=== PATIENT | male | born 1965 | race Caucasian/White ===

== ENCOUNTER → 2024-01-28 06:26 | Day surgery (SDC) | payer BC, SELFPAY | LOC: GI 06:26 | PROVIDERS: ATTENDING PHYSICIAN Surgery | DX: Z12.11 Encounter for screening for malignant neoplasm of colon (principal); D12.2 Benign neoplasm of ascending colon; D12.5 Benign neoplasm of sigmoid colon; D12.8 Benign neoplasm of rectum | CPT/HCPCS: 45385; 88305 ==

== ENCOUNTER 2024-11-18 06:21 | Day surgery (SDC) | payer BC, SELFPAY | END 2024-11-18 10:13 | disposition home or self-care (01) | LOC: GI 06:21 | PROVIDERS: ATTENDING PHYSICIAN Surgery; FAMILY PHYSICIAN Family Medicine | DX: Z12.11 Encounter for screening for malignant neoplasm of colon (principal); D12.4 Benign neoplasm of descending colon; K56.2 Volvulus; K64.8 Other hemorrhoids; Z86.0100 Personal history of colon polyps, unspecified | CPT/HCPCS: 45380; 88305 ==

== ENCOUNTER 2024-12-02 22:27 | Inpatient (IN) | payer BC, SELFPAY ==
[2024-12-02] VITALS (13 sets, daily range): BP systolic 0–191; BP diastolic 59–141; BMI 26.5
[2024-12-02 15:44] LABS: Hematocrit 53.1 % (39.0-52.0); Hemoglobin 18.7 g/dL (13.0-18.0); Mean Corp Hgb Conc. 35.2 g/dL (33.0-37.0); Mean Corpuscular Hgb 32.5 pg (27.0-31.0); Mean Corpuscular Volume 92.2 fL (80.0-94.0); Mean Platelet Volume 10.9 fL (7.4-10.4); Platelet Count 404 10^3/uL (130-400); Red Blood Cell Count 5.76 10^6/uL (4.70-6.10); Red Cell Dist. Width 12.8 % (11.5-14.5); White Blood Cell Count 23.7 10^3/uL (4.8-10.8)
[2024-12-02 15:50] LABS: ALT (SGPT) 27 U/L (0-50); AST (SGOT) 23 U/L (17-59); Alkaline Phosphatase 85 U/L (38-126); Blood Urea Nitrogen 21 mg/dl (9-20); Calcium 10.6 mg/dl (8.4-10.2); Carbon Dioxide 13 mmol/L (22-30); Chloride 99 mmol/L (98-107); Glucose 236 mg/dl (70-99); Potassium 4.6 mmol/L (3.5-5.1); Sodium 133 mmol/L (135-145); Total Bilirubin 1.3 mg/dl (0.2-1.3); Total Protein 7.8 g/dl (6.3-8.2); eGFR > 60.00
[2024-12-02 16:18] LABS: Lipase 303 U/L (23-300)
[2024-12-02 16:32] LABS: % Basophils 0.4 % (0-2); % Immature Granulocytes 0.5 % (0-0.5); % Lymphocytes 2.1 % (20.5-51.1); % Monocytes 4.8 % (1.7-9.3); % Neutrophils 92.2 % (42.2-75.2); Absolute Basophils 0.1 10^3/uL (0-0.2); Absolute Immature Granulocytes 0.1 10^3/uL (0-0.05); Absolute Lymphocytes 0.5 10^3/uL (1.2-3.4); Absolute Monocytes 1.2 10^3/uL (0.1-0.6); Absolute Neutrophils 21.8 10^3/uL (1.4-6.5); Nucleated Red Blood Cells % 0 % (-)
[2024-12-02] MEDS: MORPHINE SULFATE 4 MG IV (17:33)
[2024-12-02 17:46] LABS: Venous Blood Gas B.E. -6.9 mmol/L (-4 to +4); Venous Blood Gas HCO3 17.9 mmol/L (22-27); Venous Blood Gas pCO2 34 mmHg (35-48); Venous Blood Gas pH 7.33 (7.32-7.43); Venous Blood Gas pO2 52 mmHg (30-50)
[2024-12-02 17:53] LABS: Venous Blood Gas O2 Therapy 98
[2024-12-02 18:00] LABS: Lactic Acid 4.3 mmol/L (0.7-2.0)
[2024-12-02] MEDS: DILAUDID 0.5 MG IV ×2 (18:22→19:00)
[2024-12-02 18:24] LABS: B-Hydroxybutyrate 0.48 mmol/L (0.02-0.27)
[2024-12-02] MEDS: ZOSYN 100 IV (18:52)
--- NOTE | 2024-12-02 19:09 | ED.GENMED ---
History of Present Illness
General
Chief Complaint: Abdominal Pain
Source: patient and spouse
Exam Limitations: none
Time Seen by Provider: 12/02/24 17:26
Nursing documentation reviewed up to this point in time: agreed with
History of Present Illness
History of Present Illness:
59-year-old male presenting to the emergency department today with concerns of worsening abdominal pain over the past 12 hours or so associated diarrhea started yesterday. No vomiting pain is evolving to the entire abdomen discomfort throughout the
abdomen with some tension. Denies any specific fevers. Denies similar symptoms in the past. Denies any chest pain of breath.
Review of Systems
Review of Systems
Allergies reviewed?: Yes
All Other Systems: ROS reviewed and negative except as documented in HPI and ROS
Phy Exam
Physical Exam
Physical Exam:
GENERAL: Alert , in no apparent distress
EYE: pupils equal and reactive
NECK: Supple, no significant adenopathy.
ENT: o/p clr, mmm.
CARDIAC: Regular rate and rhythm .
LUNGS: Clear breath sounds bilaterally, no acute respiratory distress, no wheezes/rales/rhonchi
ABDOMEN: Peritoneal abdomen tenderness to palpation throughout. No overlying skin changes
NEUROLOGICAL: Alert and oriented, no focal neuro deficits
SKIN: Warm and dry, skin intact.
MUSCULOSKELETAL: No edema, well perfused.
PSYCH: Normal and appropriate interaction.
Sepsis
Sepsis Screening
Sepsis Assessment: Sepsis
Sepsis Screening: Lactate >2mmol/L
Sepsis Screen
Sepsis Screen: Sepsis
Date: 12/02/24
Time: 19:00
Course
Orders/Labs/Results
Orders:
Orders
12/02/24 15:20
B-Hydroxybutyrate Urgent
Comment: ADDON
Complete Blood Count/With Diff Urgent
Comprehensive Metabolic Panel Urgent
Lipase Urgent
12/02/24 17:30
CT Abd/Pel (IV only)-DH only Urgent
Comment:
Reason For Exam: diffuse abd pain diarrhea
Morphine Sulfate 4 mg IV NOW STA
12/02/24 17:32
Lactic Acid Urgent
Venous Blood Gas Urgent
%Oxygen/Room Air: 98
12/02/24 17:34
Add On- LAB Urgent
Tests Added?: beta-hydroxy
12/02/24 18:20
HYDROmorphone [Dilaudid] 0.5 mg IV NOW STA
12/02/24 18:42
Piperacillin/Tazo 4.5 Gram [Zosyn] 4.5 gram in 100 ml IV NOW
12/02/24 18:57
HYDROmorphone [Dilaudid] 0.5 mg IV NOW STA
Abnormal Lab Results
12/02/24 12/02/24
15:20 17:32
WBC 23.7 H 10^3/uL
(4.8-10.8)
Hgb 18.7 H g/dL
(13.0-18.0)
Hct 53.1 H %
(39.0-52.0)
MCH 32.5 H pg
(27.0-31.0)
Plt Count 404 H 10^3/uL
(130-400)
MPV 10.9 H fL
(7.4-10.4)
Abs Immat Gran (auto) 0.1 H 10^3/uL
(0-0.05)
Absolute Neuts (auto) 21.8 H 10^3/uL
(1.4-6.5)
Absolute Lymphs (auto) 0.5 L 10^3/uL
(1.2-3.4)
Absolute Monos (auto) 1.2 H 10^3/uL
(0.1-0.6)
Neutrophils % 92.2 H %
(42.2-75.2)
Lymphocytes % 2.1 L %
(20.5-51.1)
VBG pCO2 34 L mmHg
(35-48)
VBG pO2 52 H mmHg
(30-50)
VBG HCO3 17.9 L mmol/L
(22-27)
Sodium 133 L mmol/L
(135-145)
Carbon Dioxide 13 L* mmol/L
(22-30)
BUN 21 H mg/dl
(9-20)
Glucose 236 H mg/dl
(70-99)
Lactic Acid 4.3 H* mmol/L
(0.7-2.0)
Calcium 10.6 H mg/dl
(8.4-10.2)
Lipase 303 H U/L
(23-300)
B-Hydroxybutyrate 0.48 H mmol/L
(0.02-0.27)
12/02/24 15:20
12/02/24 15:20
Vital Signs
Initial and Last Documented VS:
Initial Vital Signs
Temp Pulse Resp BP Pulse Ox
98.2 F 125 18 160/100 97
12/02/24 15:08 12/02/24 15:08 12/02/24 15:08 12/02/24 15:08 12/02/24 15:08
Last Documented Vital Signs
Temp Pulse Resp BP Pulse Ox
98.2 F 91 20 151/92 94
12/02/24 15:08 12/02/24 18:24 12/02/24 18:24 12/02/24 19:00 12/02/24 19:15
MDM/Problems Addressed
MDM/Problems Addressed:
59-year-old male presenting to the emergency department with acute abdomen. Symptom starting roughly 12 hours prior to arrival. Did have some diarrhea yesterday. Arrival tachycardic but improving after receiving pain medications and fluids.
Significant elevated white count as well as low bicarb. Lactic acid significantly elevated. CT scan obtained in expedited fashion showing perforation with free fluid. Case immediately discussed with general surgery. They will take him to the OR
tonight. He was stable throughout ER stay.
*Critical Care Note
Total Time (30-74mins, 75-104mins- exclusive of procedures): Not Applicable
ED Attending Note
-
Portions of this chart may have been created with voice recognition software.� Occasional wrong word or��sound alike� substitutions may have occurred due to the inherent limitations of voice recognition software.
Discharge Plan
Departure
Patient Disposition: OR
Date of Disposition: 12/02/24
Time of Disposition: 19:29
Admit to: Med/Surg
Admit to doctor: Nilsa
Presentation/result/management discussed w/ accepting MD/DO: Gen Surgery
Patient with high blood pressure during this ER visit?: No
Condition: Good
Covid-19: Not Applicable
Discharge Problem:
Perforated abdominal viscus, Sepsis
Prescriptions:
No Action
bismuth subsalicylate [Pepto-Bismol] 262 mg/15 mL Suspension
524 mg PO Q1HPRN PRN (Reason: GI upset)
calcium carbonate [Tums] 200 mg calcium (500 mg) Tablet,Chewable
200 mg PO QIDPRN PRN (Reason: Stomach upset)
ibuprofen 200 mg Tablet
400 mg PO Q6HPRN PRN (Reason: mild pain)
Referrals:
Norberto Mccarthy MD [Family Provider] -
Interventions
Interventions:
*Risk Screen - Suicide Last Done: 12/02/24 15:08
*General Assessment Last Done: 12/02/24 15:08
*Neglect/Abuse Screening Last Done: 12/02/24 17:25
ED- Fall Risk Assessment Last Done: 12/02/24 17:36
*ED COVID-19 Vaccine History Last Done: 12/02/24 15:08
LX-Uqhfao-Bpyqbugmcn Assessment Last Done: 12/02/24 17:41
Discharge Date and Time
Print Language: SLOVAK
--- NOTE | 2024-12-02 20:20 | HPS.HSE ---
Family Physician
-
Family Physician: Norberto Mccarthy
Chief Complaint
-
Abdominal pain
History of Present Illness
Patient is a 59-year-old male who is in his usual baseline state of health until he awoke with the acute onset of generalized abdominal pain today that rapidly progressed. Nausea, anorexia but no vomiting. He did have some loose bowel movements
yesterday. No melena or hematochezia. Recent normal colonoscopy a little over 2 weeks ago.
Sprained his knee on and was taking NSAIDs for the past day and a half. Drinks 8-10 beers daily. Quit smoking this past May. Otherwise denies any active medical history that he is aware of.
Medical History
Past Medical History
Past Medical History: Reports Other (Alcohol abuse, recent history of tobacco use)
Additional Past Medical History:
Patient does not routinely see physicians and denies any past medical history diagnoses
Past Surgical History: Reports None
Social History
Tobacco: Former Smoker
Alcohol: Chronic Alcoholic
Personal:
Living: With Family
Employment: Employed
Family History
Family History: Not pertinent
Allergies / Home Medications
Allergies reflects when Allergies were last updated in [employer]
Home Medications with original date entered in [employer]
Allergy/Medication List:
Allergies
Allergy/AdvReac Type Severity Reaction Status Date / Time
No Known Allergies Allergy Verified 12/02/24 15:11
�Medication �Instructions �Recorded �Confirmed �Type
bismuth subsalicylate 262 mg/15 mL 524 mg PO Q1HPRN PRN GI upset 12/02/24 12/02/24 History
oral suspension (Pepto-Bismol)
calcium carbonate (Tums) 200 mg PO QIDPRN PRN Stomach upset 12/02/24 12/02/24 History
ibuprofen 200 mg tablet 400 mg PO Q6HPRN PRN mild pain 12/02/24 12/02/24 History
Review of Systems
-
History Source: Patient and Family
A 12 point ROS was completed and negative except as noted: Yes
Physical Exam
Vital Signs
Vital Signs
Temp Pulse Resp BP Pulse Ox
98.2 F 91 20 151/92 94
12/02/24 15:08 12/02/24 18:24 12/02/24 18:24 12/02/24 19:00 12/02/24 19:45
Physical Exam
General: Well Developed, Well Nourished, Chills, Sweats and Other (Acutely ill)
HEENT: NormoCephalic, Anicteric and Moist mucous membranes
Respiratory: Non Labored Respirations
Cardiac: Regular Rhythm
GI: Tender (Diffusely tender on palpation with upper abdominal rebound rigidity and guarding) and Distended
Neuro: AO x 3
Psych: Calm
Laboratory Results
-
12/02/24 15:20
12/02/24 15:20
Laboratory Results
Lactic Acid 4.3 mmol/L (0.7-2.0) H* 12/02/24 17:32
Total Bilirubin 1.3 mg/dl (0.2-1.3) 12/02/24 15:20
AST 23 U/L (17-59) 12/02/24 15:20
ALT 27 U/L (0-50) 12/02/24 15:20
Alkaline Phosphatase 85 U/L (38-126) 12/02/24 15:20
Lipase 303 U/L (23-300) H 12/02/24 15:20
Data Reviewed
-
CT Scan: Image Personally Visualized and interpreted, Report Reviewed by me, Discussed with Physician, Discussed with Patient and Discussed with Family
Impression/Plan
-
IMPRESSION: 59-year-old male presenting with perforated viscus, generalized peritonitis, sepsis due to perforated viscus resultant leukocytosis and thrombocytosis, metabolic acidosis.
Chronic alcohol abuse
Reviewed with patient and his indications for emergent surgery for management of perforated viscus. Based on history and review of CT imaging most likely suspect perforated peptic ulcer although small bowel perforation remains on differential
diagnosis as per radiologist CT imaging reading. We discussed the anticipated operative procedure exploratory laparotomy, repair of perforated viscus in detail including potential operative findings and the management, alternative treatment
options, benefits and potential risk such as but not limited to bleeding requiring transfusion, infectious and related complications, iatrogenic injury to surrounding viscera, postoperative anastomotic related complications such as leak or stenosis.
We discussed the typical postoperative hospitalization/recovery pending operative findings. We discussed the severity of the patient's illness and how his chronic alcohol abuse may impact his postoperative recovery and associated postoperative
morbidities/risk for complication.
Any of the patient's or his 's concerns or questions were fully addressed and written informed consent was obtained
PLAN: 2 OR for exploratory laparotomy repair of perforated viscus
Zosyn administered
Further postop care pending operative findings
--- NOTE | 2024-12-02 20:27 | W.SUR.PREOP ---
Pre-Operative Surgical Note
-
I have examined this patient prior to the performance of the scheduled procedure.
The patient's condition is unchanged from the time of the current History and
Physical and the patient is able to undergo the scheduled procedure.
--- NOTE | 2024-12-02 22:21 | W.IMMPOSTOP ---
Addendum entered and electronically signed by Paul Ash MD 12/02/24 22:35:
#[id number]
Original Note:
Surgical Immed Post Op Note
-
Primary Surgeon: Nilsa
Assisting Surgeon: None
Pre-op Diagnosis: Perforated viscus, generalized peritonitis, sepsis
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 Generalized peritonitis. Sepsis
Procedure Performed: Exploratory laparotomy, primary repair jejunal ulcer with serosal patch
Anesthesia Type: GETA +0.25% Marcaine with epi
Specimen / Cultures: None/abdominal fluid
Estimated Blood Loss: 30 mL
Complications: None immediate
Operative Findings: 2 to 3 mm of free perforation just distal to ligament of Treitz on the jejunum. Clean edges. No stricture, no mass, no diverticulum's. Stomach and duodenum normal. Remaining small bowel normal. Colon normal. Primary closure
of jejunal perforation with 3-0 PDS. Serosal patch to buttress primary closure. Nasogastric tube in place and positioned postpyloric into second portion of duodenum to aid in drainage of proximal bilious/pancreatic and gastric secretions initially
postop.
Plan: Zosyn for perforated viscus -await operative culture results
Protonix bolus and drip postoperatively to minimize acid secretion
NG tube decompression for 72 hours postop -anticipate getting upper GI contrast imaging prior to removal
DONTAE to bulb suction
Shetty until postop day #2
Analgesics and antiemetics as needed postoperatively; affirmative ordered for narcotic alternative
Monitor for risk of alcohol withdrawal -last drink according to family Sunday evening
Updated patient's and daughter postoperatively in waiting area.
[2024-12-02] MEDS: PROTONIX IV 80 MG IV (23:15)
[2024-12-03] VITALS (9 sets, daily range): BP systolic 113–170; BP diastolic 83–96
[2024-12-03] MEDS: NSS 1000 IV ×3 (00:33→17:18)
[2024-12-03] MEDS: PROTONIX 100 IV ×3 (00:35→21:21)
[2024-12-03] MEDS: ZOSYN 50 IV ×5 (00:47→23:29)
[2024-12-03] MEDS: DILAUDID 0.5 MG IV ×3 (00:49→23:29)
--- NOTE | 2024-12-03 02:29 | PTCARENOTE ---
Pt arrived from PACU 2330. NGT in R denisee to LIWS. IVF infusing. VSS. 2LO2 via NC. Pt AAOX3. pain 02/28 (see mar). Bd locked and in lowest position. call levi in reach.
[2024-12-03 06:23] LABS: Hematocrit 46.6 % (39.0-52.0); Hemoglobin 16.3 g/dL (13.0-18.0); Mean Corpuscular Hgb 32.5 pg (27.0-31.0); Mean Corpuscular Volume 92.8 fL (80.0-94.0); Mean Platelet Volume 11.3 fL (7.4-10.4); Platelet Count 334 10^3/uL (130-400); Red Blood Cell Count 5.02 10^6/uL (4.70-6.10); White Blood Cell Count 19.2 10^3/uL (4.8-10.8)
[2024-12-03 06:55] LABS: Blood Urea Nitrogen 24 mg/dl (9-20); Calcium 8.3 mg/dl (8.4-10.2); Carbon Dioxide 18 mmol/L (22-30); Chloride 104 mmol/L (98-107); Estimated Creatinine Clearance 68 ml/min; Glucose 143 mg/dl (70-99); Potassium 4.4 mmol/L (3.5-5.1); Sodium 135 mmol/L (135-145); eGFR > 60.00
[2024-12-03 07:33] LABS: Hepatitis C Antibody Negative (Negative)
--- NOTE | 2024-12-03 08:12 | W.PN.GS2 ---
Today's Communication / Plan
-
`
Assessment / Plan
-
Assessment: 59-year-old male POD #1 status post ex lap, primary repair/closure perforated jejunal ulcer at ligament of Treitz with serosal patch to buttress primary repair.
History of longstanding EtOH abuse
AFVSS
Doing well initially postop; no symptoms suggestive of EtOH withdrawal; last drink about 3 days ago
DONTAE with murky mostly serous fluid. Nonbilious, not enteric.
Postop leukocytosis improving
Initial metabolic acidosis resolved, Peritonitis and sepsis due to perforated jejunum resolved
Adequate I's and O's
OR cultures pending
Plan:
Postop pain control with as needed Dilaudid/Ofirmev [NO NSAIDS]
NPO, postpyloric NG tube decompression postop
-- Ice chips sparingly for comfort
Tentative plan upper GI study on 12/05/2024 to evaluate site of jejunal perforation and repair
Monitor for EtOH withdrawal -as needed Ativan, thiamine IV, folic acid IV while NPO
Up out of bed to chair, ambulate as able, encourage IS use
Maintain Thorpe until postoperative day #2
Zosyn
Protonix drip initiated after bolus yesterday evening. Transition to twice daily IV Protonix dosing tomorrow a.m.
Follow DONTAE outputs
Lovenox/SCDs for VTE prophylaxis
Reviewed in detail with patient operative findings and anticipated postoperative hospitalization and care as outlined above. Any of his concerns or questions were confirmed to be fully addressed. Discussed with nursing at bedside as well to help
coordinate his postoperative care.
Subjective Data
-
Date of Service: December 03, 2024
Patient seen and examined. Postoperative pain reportedly controlled.
No nausea.
Offers no additional specific concerns/complaints other than reviewing his anticipated postoperative care.
Objective Data
-
Intake and Output
12/02/24 12/03/24 12/04/24
06:59 06:59 06:59
Intake Total 1500 / 1500
Output Total 405 / 405
Balance 1095 / 1095
Intake:
Oral fluids 120 / 120
IV fluids (Total) 1220 / 1220
Normosol 100 / 100
IV piggybacks 100 / 100
Amount instilled into GI Tube ( 60 / 60
Total)
Izard Sump 60 / 60
Output:
Drain Output (Total) 60 / 60
Left Lower Arnel-Lozano 60 / 60
Gastrointestinal tube output ( 225 / 225
Total)
Izard Sump 225 / 225
Urine, Thorpe 120 / 120
Urine, Voided 0 / 0
Vital Signs
Temp Pulse Resp BP Pulse Ox
97.9 F 84 16 156/91 94
12/03/24 07:45 12/03/24 07:45 12/03/24 07:45 12/03/24 07:45 12/03/24 07:45
Lab Results
12/03/24 05:47
12/03/24 05:47
Calcium 8.3 mg/dl (8.4-10.2) L D 12/03/24 05:47
Total Bilirubin 1.3 mg/dl (0.2-1.3) 12/02/24 15:20
AST 23 U/L (17-59) 12/02/24 15:20
ALT 27 U/L (0-50) 12/02/24 15:20
Alkaline Phosphatase 85 U/L (38-126) 12/02/24 15:20
Total Protein 7.8 g/dl (6.3-8.2) 12/02/24 15:20
Albumin 5.0 g/dl (3.5-5.0) 12/02/24 15:20
Physical Exam
-
NAD AAOx3
ABD: Soft, mildly distended, generalized tenderness but no rebound rigidity or guarding.
Surgical dressing clean
DONTAE serosanguineous fluid
NG tube in place with bilious contents in canister
Patient has a thorpe catheter: Yes
[2024-12-03] MEDS: FOLVITE 50.2 MG IV (09:28)
--- NOTE | 2024-12-03 10:17 | CM ---
Patient seen at bedside.
IA completed
CM consult completed - Discussed [facility], declines [facility] resources
Lives with his , daughter & daughter boyfriend in a 2 story home, 1st floor set up, stairs to second floor
PLOF: independent
Denies DME
Denies HH/Rehab
Denies insecurities
PCP: Norberto Mccarthy
Pharmacy: [facility]
PLAN: Home, no needs anticipated
[2024-12-03] MEDS: THIAMINE INJECTION 200 MG IV ×2 (10:54→20:10)
[2024-12-03] MEDS: DILAUDID 1 MG IV ×3 (10:59→20:02)
[2024-12-03] MEDS: CHLORASEPTIC/SORE THROAT SPRAY 1 SPRAY PO ×2 (16:27→20:01)
[2024-12-03] MEDS: LOVENOX 40 MG SC (17:19)
[2024-12-04] MEDS: NSS 1000 IV (01:46)
[2024-12-04] MEDS: NSS IV (05:11)
[2024-12-04] MEDS: DILAUDID 0.5 MG IV (05:14)
[2024-12-04] MEDS: ZOSYN 50 IV ×4 (05:14→23:02)
[2024-12-04 06:35] LABS: Hematocrit 40.7 % (39.0-52.0); Hemoglobin 14.2 g/dL (13.0-18.0); Mean Corp Hgb Conc. 34.9 g/dL (33.0-37.0); Mean Corpuscular Hgb 32.3 pg (27.0-31.0); Mean Corpuscular Volume 92.7 fL (80.0-94.0); Mean Platelet Volume 12.2 fL (7.4-10.4); Platelet Count 241 10^3/uL (130-400); Red Blood Cell Count 4.39 10^6/uL (4.70-6.10); Red Cell Dist. Width 13.2 % (11.5-14.5); White Blood Cell Count 17.1 10^3/uL (4.8-10.8)
[2024-12-04 06:52] LABS: Blood Urea Nitrogen 25 mg/dl (9-20); Calcium 8.1 mg/dl (8.4-10.2); Carbon Dioxide 15 mmol/L (22-30); Chloride 107 mmol/L (98-107); Estimated Creatinine Clearance 75 ml/min; Glucose 83 mg/dl (70-99); Magnesium 2.2 mg/dl (1.6-2.3); Phosphorus 3.4 mg/dl (2.5-4.5); Sodium 137 mmol/L (135-145); eGFR > 60.00
[2024-12-04 07:50] VITALS: BP 162/86
--- NOTE | 2024-12-04 08:29 | W.PN.GS2 ---
Today's Communication / Plan
-
`
Assessment / Plan
-
Assessment: 59-year-old male POD #2 status post ex lap, primary repair/closure perforated jejunal ulcer at ligament of Treitz with serosal patch to buttress primary repair.
History of longstanding EtOH abuse
AFVSS
no symptoms suggestive of EtOH withdrawal
DONTAE with murky mostly serous fluid. Nonbilious, not enteric.
Postop leukocytosis improving
OR cultures pending -Gram stain WBCs, no organisms
Plan:
Postop pain control with as needed Dilaudid/Ofirmev [NO NSAIDS]
NPO, postpyloric NG tube decompression postop
-- Ice chips sparingly for comfort
Tentative plan upper GI study on 12/05/2024 to evaluate site of jejunal perforation and repair
Monitor for EtOH withdrawal -as needed Ativan, thiamine IV, folic acid IV while NPO
Up out of bed to chair, ambulate as able, encourage IS use
Zosyn -following cultures
twice daily IV Protonix -jejunal perforation at ligament of Treitz to minimize acid secretion
Follow DONTAE outputs
Lovenox/SCDs for VTE prophylaxis
Subjective Data
-
Date of Service: December 04, 2024
Patient seen and examined.
Primary complaint is not being able to drink and NG tube in place
Generalized abdominal pain improving and now more localized incisional pain, adequately controlled
No flatus or BM yet
Objective Data
-
Intake and Output
12/03/24 12/04/24 12/05/24
06:59 06:59 06:59
Intake Total 1500 / 1500 3940 / 3940
Output Total 405 / 405 2570 / 2570
Balance 1095 / 1095 1370 / 1370
Intake:
Oral fluids 120 / 120 480 / 480
IV fluids (Total) 1220 / 1220 3080 / 3080
Normosol 100 / 100
IV piggybacks 100 / 100 200 / 200
Amount instilled into GI Tube ( 60 180 / 180
Total)
Marathon Sump 60 180 / 180
Output:
Drain Output (Total) 190 / 190
Left Lower Arnel-Lozano 190 / 190
Gastrointestinal tube output ( 225 / 225 980 / 980
Total)
Marathon Sump 225 / 225 980 / 980
Urine, Thorpe 120 / 120 525 / 525
Urine, Voided 0 / 0 875 / 875
Other:
Number of approximated SMALL 3
amounts of urine
Vital Signs
Temp Pulse Resp BP Pulse Ox
98.5 F 81 18 151/96 94
12/03/24 23:28 12/03/24 23:28 12/03/24 23:28 12/03/24 23:28 12/04/24 02:35
Lab Results
12/04/24 04:51
12/04/24 04:51
Calcium 8.1 mg/dl (8.4-10.2) L 12/04/24 04:51
Phosphorus 3.4 mg/dl (2.5-4.5) 12/04/24 04:51
Magnesium 2.2 mg/dl (1.6-2.3) 12/04/24 04:51
Total Bilirubin 1.3 mg/dl (0.2-1.3) 12/02/24 15:20
AST 23 U/L (17-59) 12/02/24 15:20
ALT 27 U/L (0-50) 12/02/24 15:20
Alkaline Phosphatase 85 U/L (38-126) 12/02/24 15:20
Total Protein 7.8 g/dl (6.3-8.2) 12/02/24 15:20
Albumin 5.0 g/dl (3.5-5.0) 12/02/24 15:20
Physical Exam
-
NAD AAOx3
ABD: Softly distended and tympanitic. Mild tenderness on palpation around the incision area.
NG tube with bilious output
DONTAE serosanguineous fluid -nonbilious, not enteric, not purulent
Midline incision clean, small openings between nguyen with wound charlene. No significant drainage. No erythema.
Patient has a thorpe catheter: No
[2024-12-04] MEDS: PROTONIX IV 40 MG IV ×2 (08:49→20:31)
[2024-12-04] MEDS: THIAMINE INJECTION 200 MG IV ×2 (08:50→20:30)
[2024-12-04] MEDS: FOLVITE 50.2 MG IV (08:50)
[2024-12-04] MEDS: NSS (PRESERVATIVE FREE) 10 ML IV ×2 (08:50→20:31)
[2024-12-04] MEDS: DILAUDID 1 MG IV ×3 (08:54→16:52)
[2024-12-04] MEDS: D5/0.45%NSS with KCL 20 MEQ 1000 IV ×2 (09:33→17:55)
[2024-12-04] MEDS: PROTONIX IV (09:33)
--- NOTE | 2024-12-04 09:37 | CM ---
Patient seen at bedside.
NGT in place, thorpe was d/c
Declines [facility]
PLAN: Home when medically stable, no needs anticipated
[2024-12-04 11:05] VITALS: BP 169/84
[2024-12-04 15:20] VITALS: BP 141/79
[2024-12-04] MEDS: CHLORASEPTIC/SORE THROAT SPRAY 1 SPRAY PO ×2 (15:51→20:28)
[2024-12-04] MEDS: FLUSH (NSS) 1 FLUSH IV (16:52)
[2024-12-04] MEDS: LOVENOX 40 MG SC (17:56)
[2024-12-04 23:42] VITALS: BP 170/95
[2024-12-05] MEDS: ATIVAN 1 MG IV ×2 (01:17→19:50)
[2024-12-05] MEDS: NSS (PRESERVATIVE FREE) 0.5 ML IV (01:17)
[2024-12-05] MEDS: D5/0.45%NSS with KCL 20 MEQ 1000 IV ×2 (02:14→10:54)
[2024-12-05 03:50] VITALS: BP 160/90
[2024-12-05] MEDS: ZOSYN 50 IV ×4 (05:31→23:52)
[2024-12-05 06:56] VITALS: BP 147/85
[2024-12-05 08:58] LABS: Hematocrit 42.4 % (39.0-52.0); Hemoglobin 14.9 g/dL (13.0-18.0); Mean Corp Hgb Conc. 35.1 g/dL (33.0-37.0); Mean Corpuscular Hgb 32.3 pg (27.0-31.0); Mean Platelet Volume 10.8 fL (7.4-10.4); Platelet Count 340 10^3/uL (130-400); Red Blood Cell Count 4.61 10^6/uL (4.70-6.10); Red Cell Dist. Width 12.9 % (11.5-14.5); White Blood Cell Count 13.9 10^3/uL (4.8-10.8)
[2024-12-05] MEDS: DILAUDID 1 MG IV ×2 (09:13→12:24)
[2024-12-05] MEDS: PROTONIX IV 40 MG IV ×2 (09:13→19:39)
[2024-12-05] MEDS: NSS (PRESERVATIVE FREE) 10 ML IV ×2 (09:13→19:38)
[2024-12-05] MEDS: THIAMINE INJECTION 200 MG IV ×2 (09:14→19:39)
[2024-12-05 09:26] LABS: Blood Urea Nitrogen 14 mg/dl (9-20); Calcium 8.6 mg/dl (8.4-10.2); Carbon Dioxide 24 mmol/L (22-30); Chloride 97 mmol/L (98-107); Estimated Creatinine Clearance 82 ml/min; Glucose 132 mg/dl (70-99); Potassium 3.4 mmol/L (3.5-5.1); Sodium 130 mmol/L (135-145); eGFR > 60.00
[2024-12-05 09:58] VITALS: BMI 26.5
--- NOTE | 2024-12-05 10:02 | CM ---
Patient chart reviewed
Not in room is having upper GI study to evaluate site of jejunal perforation and repair
patient had declined [facility]
PLAN: home, no needs anticipated
[2024-12-05] MEDS: FOLVITE 50.2 MG IV (10:52)
[2024-12-05] MEDS: ZOFRAN 4 MG IV ×2 (12:24→18:33)
--- NOTE | 2024-12-05 14:37 | W.PN.GS2 ---
Today's Communication / Plan
-
`
Assessment / Plan
-
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
History of longstanding EtOH abuse
Limited upper GI study completed 12/05/24: No evidence of extravasation. Area of stenosis likely reflective of postoperative edema at ulcer repair site. Delayed emptying gastric/duodenal likely more reflective of ileus than mechanical process.
AFVSS
DONTAE nonicteric, nonbilious
Postop leukocytosis improving
OR cultures no growth-Gram stain WBCs, no organisms
Hyponatremia, hypokalemia on today's chemistry panel
Plan:
Postop pain control with PRN Dilaudid
Maintain NPO, NG tube decompression postop -until improving signs of returning GI function
-- Ice chips sparingly for comfort
-- Consideration of PICC and TPN if continue ileus over next few days
Change IV fluids to D5 normal saline with 40 KCl and replaced K with 40 mEq KCl rider
Monitor for EtOH withdrawal -as needed Ativan, thiamine IV, folic acid IV while NPO
Up out of bed to chair, ambulate as able, encourage IS use
Zosyn -following cultures
twice daily IV Protonix -jejunal perforation at ligament of Treitz to minimize acid secretion
Follow DONTAE outputs
Lovenox/SCDs for VTE prophylaxis
Subjective Data
-
Date of Service: December 05, 2024
Patient seen and examined. sitting at bedside as well.
Developed nausea and increasing pain and after upper GI study.
NG tube was placed back to continuous suction which provided relief.
Improved.
Passing flatus occasionally
Pain better controlled at the moment.
Objective Data
-
Intake and Output
12/04/24 12/05/24 12/06/24
06:59 06:59 06:59
Intake Total 3940 / 3940 1930 / 1930
Output Total 2570 / 2570 3155 / 3155 325 / 325
Balance 1370 / 1370 -1225 / -1225 -325 / -325
Intake:
Oral fluids 480 / 480 120 / 120
IV fluids (Total) 3080 / 3080 1560 / 1560
IV piggybacks 200 / 200 100 / 100
Amount instilled into GI Tube ( 180 / 180 150 / 150
Total)
Alcolu Sump 180 / 180 150 / 150
Output:
Drain Output (Total) 190 / 190 230 / 230
Left Lower Arnel-Lozano 190 / 190 230 / 230
Gastrointestinal tube output ( 980 / 980 600 / 600
Total)
Alcolu Sump 980 / 980 600 / 600
Urine, Shetty 525 / 525
Urine, Voided 875 / 875 2325 / 2325 325 / 325
Other:
Number of approximated SMALL 3
amounts of urine
Vital Signs
Temp Pulse Resp BP Pulse Ox
98.7 F 80 18 147/85 97
12/05/24 06:56 12/05/24 06:56 12/05/24 06:56 12/05/24 06:56 12/05/24 09:11
Lab Results
12/05/24 07:54
12/05/24 07:54
Calcium 8.6 mg/dl (8.4-10.2) 12/05/24 07:54
Phosphorus 3.4 mg/dl (2.5-4.5) 12/04/24 04:51
Magnesium 2.2 mg/dl (1.6-2.3) 12/04/24 04:51
Total Bilirubin 1.3 mg/dl (0.2-1.3) 12/02/24 15:20
AST 23 U/L (17-59) 12/02/24 15:20
ALT 27 U/L (0-50) 12/02/24 15:20
Alkaline Phosphatase 85 U/L (38-126) 12/02/24 15:20
Total Protein 7.8 g/dl (6.3-8.2) 12/02/24 15:20
Albumin 5.0 g/dl (3.5-5.0) 12/02/24 15:20
Physical Exam
-
NAD AAOx3
ABD: Softly distended, mild tenderness at incision sites. No rebound rigidity or guarding.
Midline incision clean, wound charlene removed. Dressing replaced.
DONTAE light serosanguineous fluid. Nonbilious, not icteric.
NG tube has bilious contents.
--- NOTE | 2024-12-05 14:41 | PTCARENOTE ---
Patient vomited about an hour after he came back from the upper gi study he had this morning with contrast.Patient continues with nasogastric tube with suction.Zofran was given with relief.Dr. Ash notified.
[2024-12-05] MEDS: KCL 270 MEQ IV (14:47)
[2024-12-05] MEDS: LOVENOX 40 MG SC (18:02)
[2024-12-05] MEDS: D5/0.9% with KCL 40 MEQ 1000 IV (19:38)
[2024-12-05 22:40] VITALS: BP 132/91
[2024-12-06] MEDS: D5/0.9% with KCL 40 MEQ 1000 IV ×3 (03:38→19:59)
[2024-12-06] MEDS: ZOSYN 50 IV ×3 (05:59→17:48)
[2024-12-06 07:35] VITALS: BP 152/95
[2024-12-06] MEDS: FOLVITE 50.2 MG IV (07:51)
[2024-12-06] MEDS: NSS (PRESERVATIVE FREE) 10 ML IV ×2 (07:53→20:04)
[2024-12-06] MEDS: PROTONIX IV 40 MG IV ×2 (07:53→20:04)
[2024-12-06] MEDS: CHLORASEPTIC/SORE THROAT SPRAY 1 SPRAY PO (07:55)
[2024-12-06] MEDS: THIAMINE INJECTION 200 MG IV ×2 (07:55→20:04)
--- NOTE | 2024-12-06 08:52 | W.PN.GS2 ---
Today's Communication / Plan
-
NG tube clamp trial
Assessment / Plan
-
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 Now with return of bowel function.
History of longstanding EtOH abuse
Limited upper GI study completed 12/05/24: No evidence of extravasation. Area of stenosis likely reflective of postoperative edema at ulcer repair site. Delayed emptying gastric/duodenal likely more reflective of ileus than mechanical process.
Plan:
Postop pain control with PRN Dilaudid
Maintain NPO, NG clamp trial today
Change IV fluids to D5 normal saline with 40 KCl and replaced K with 40 mEq KCl rider
Monitor for EtOH withdrawal -as needed Ativan, thiamine IV, folic acid IV while NPO
Up out of bed to chair, ambulate as able, encourage IS use
Zosyn -following cultures, no growth to date
twice daily IV Protonix -jejunal perforation at ligament of Treitz to minimize acid secretion
Follow DONTAE outputs
Lovenox/SCDs for VTE prophylaxis
Anticipate pulling NG and starting clears today.
Will remove DONTAE before discharge
Time Spent
Total Time Spent with Patient (in minutes): 20
Subjective Data
-
Date of Service: December 06, 2024
Interval Events:
No acute events overnight. Slept well. Pain Controlled. Denies Nausea/Vomiting, +bowel function.
Objective Data
-
Intake and Output
12/05/24 12/06/24 12/07/24
06:59 06:59 06:59
Intake Total 1930 / 1930 3590 / 3590
Output Total 3155 / 3155 3110 / 3110 270 / 270
Balance -1225 / -1225 480 / 480 -270 / -270
Intake:
Oral fluids 120 / 120 600 / 600
IV fluids (Total) 1560 / 1560 2440 / 2440
IV piggybacks 100 / 100 520 / 520
Amount instilled into GI Tube ( 150 / 150 30 / 30
Total)
[place] Sump 150 / 150 30 / 30
Output:
Emesis 400 / 400
Drain Output (Total) 230 / 230 85 / 85
Left Lower Arnel-Lozano 230 / 230 85 / 85
Gastrointestinal tube output ( 600 / 600 2049 100 / 100
Total)
[place] Sump 600 / 600 2049 100 / 100
Urine, [place] 50 / 50
Urine, Voided 2325 / 2325 575 / 575 120 / 120
Other:
Number of approximated MODERATE 2
amounts of urine
Number of immeasurable emeses? 2
Vital Signs
Temp Pulse Resp BP Pulse Ox
97.9 F 78 16 152/95 97
12/06/24 07:35 12/06/24 07:35 12/06/24 07:35 12/06/24 07:35 12/06/24 08:00
Lab Results
12/05/24 07:54
12/05/24 07:54
Calcium 8.6 mg/dl (8.4-10.2) 12/05/24 07:54
Phosphorus 3.4 mg/dl (2.5-4.5) 12/04/24 04:51
Magnesium 2.2 mg/dl (1.6-2.3) 12/04/24 04:51
Total Bilirubin 1.3 mg/dl (0.2-1.3) 12/02/24 15:20
AST 23 U/L (17-59) 12/02/24 15:20
ALT 27 U/L (0-50) 12/02/24 15:20
Alkaline Phosphatase 85 U/L (38-126) 12/02/24 15:20
Total Protein 7.8 g/dl (6.3-8.2) 12/02/24 15:20
Albumin 5.0 g/dl (3.5-5.0) 12/02/24 15:20
Physical Exam
-
GENERAL/NEURO: Awake, Alert, no distress
CHEST: Unlabored breathing on RA, NG tube with thin yellow gastric contents
ABDOMEN: Soft, Non-Tender, mildly distended
Patient has a thorpe catheter: No
Patient has a central line: No
[2024-12-06 15:29] VITALS: BP 159/87
[2024-12-06] MEDS: DILAUDID 0.5 MG IV (15:40)
--- NOTE | 2024-12-06 16:27 | PTCARENOTE ---
1030. R NGT clamped x2 hrs. negative pressure no residuals received. removed NGT per order. notified PA.
[2024-12-06] MEDS: LOVENOX 40 MG SC (17:47)
[2024-12-06] MEDS: FLUSH (NSS) 1 FLUSH IV (17:48)
[2024-12-06] MEDS: ATIVAN 1 MG IV (22:49)
[2024-12-06] MEDS: NSS (PRESERVATIVE FREE) 0.5 ML IV (22:50)
[2024-12-06 23:55] VITALS: BP 168/89
[2024-12-07] VITALS (7 sets, daily range): BP systolic 142–174; BP diastolic 83–99
[2024-12-07] MEDS: ZOSYN 50 IV ×5 (00:45→23:42)
[2024-12-07] MEDS: D5/0.9% with KCL 40 MEQ 1000 IV ×3 (04:15→21:25)
[2024-12-07] MEDS: PROTONIX IV 40 MG IV ×2 (07:58→20:43)
[2024-12-07] MEDS: NSS (PRESERVATIVE FREE) 10 ML IV ×2 (07:59→20:42)
[2024-12-07] MEDS: THIAMINE INJECTION 200 MG IV ×2 (07:59→20:43)
--- NOTE | 2024-12-07 08:05 | W.PN.GS2 ---
Addendum entered and electronically signed by Neil Shelton MD 12/07/24 15:27:
I saw and examined the patient independently.
The resident's documentation was reviewed and I agree with the note, assessment and plan except where noted below.
Comment: Okay for clears, if tolerating well we will anticipate removing his DONTAE tomorrow.
Labetalol added for blood pressure control
Original Note:
Today's Communication / Plan
-
Can start labetalol for systolic bp goal < 140
Advance diet to clears
DC DONTAE tomorrow if tolerating clears
Dressing change later in afternoon
Postop pain control with PRN Dilaudid
Continue to monitor for EtOH withdrawal -as needed Ativan, thiamine IV, folic acid IV
Up out of bed to chair, ambulate as able, encourage IS use
Zosyn -following cultures, no growth to date
twice daily IV Protonix -jejunal perforation at ligament of Treitz to minimize acid secretion
Lovenox/SCDs for VTE prophylaxis
Assessment / Plan
-
Assessment: 59-year-old male POD #5 status post ex lap, primary repair/closure perforated jejunal ulcer at ligament of Treitz with serosal patch to buttress primary repair. Now with return of bowel function.
History of longstanding EtOH abuse
Limited upper GI study completed 12/05/24: No evidence of extravasation. Area of stenosis likely reflective of postoperative edema at ulcer repair site. Delayed emptying gastric/duodenal likely more reflective of ileus than mechanical process.
Plan:
Can start labetalol for systolic bp goal < 140
Advance diet to clears
DC DONTAE tomorrow if tolerating clears
Dressing change later in afternoon
Postop pain control with PRN Dilaudid
Continue to monitor for EtOH withdrawal -as needed Ativan, thiamine IV, folic acid IV
Up out of bed to chair, ambulate as able, encourage IS use
Zosyn -following cultures, no growth to date
twice daily IV Protonix -jejunal perforation at ligament of Treitz to minimize acid secretion
Lovenox/SCDs for VTE prophylaxis
Time Spent
Total Time Spent with Patient (in minutes): 20
Subjective Data
-
Interval events:
- No acute events overnight
- Passing gas, BM still liquid-like consistency per patient
- Pain well managed
Date of Service: December 07, 2024
Objective Data
-
Intake and Output
12/06/24 12/07/24 12/08/24
06:59 06:59 06:59
Intake Total 3590 / 3590 1450 / 1450 120 / 120
Output Total 3110 / 3110 110 / 110
Balance 480 / 480 1340 / 1340 120 / 120
Intake:
Oral fluids 600 / 600 240 / 240 120 / 120
IV fluids (Total) 2440 / 2440 960 / 960
IV piggybacks 520 / 520 250 / 250
Amount instilled into GI Tube ( 30 / 30
Total)
[place] Sump 30 / 30
Output:
Emesis 400 / 400
Drain Output (Total) 10 10
Left Lower Arnel-Lozano
Gastrointestinal tube output ( 2049 100 / 100
Total)
[place] Sump 2049 100 / 100
Urine, Voided 575 / 575
Other:
Number of approximated MODERATE 2 1 2
amounts of urine
Number of approximated LARGE 1
amounts of urine
Number of immeasurable emeses? 2
Number of unmeasured liquid
stools
Rectum 5
Vital Signs
Temp Pulse Resp BP Pulse Ox
97.6 F 71 18 174/99 98
12/07/24 07:34 12/07/24 07:34 12/07/24 07:34 12/07/24 07:34 12/07/24 07:34
Lab Results
12/05/24 07:54
12/05/24 07:54
Calcium 8.6 mg/dl (8.4-10.2) 12/05/24 07:54
Phosphorus 3.4 mg/dl (2.5-4.5) 12/04/24 04:51
Magnesium 2.2 mg/dl (1.6-2.3) 12/04/24 04:51
Total Bilirubin 1.3 mg/dl (0.2-1.3) 12/02/24 15:20
AST 23 U/L (17-59) 12/02/24 15:20
ALT 27 U/L (0-50) 12/02/24 15:20
Alkaline Phosphatase 85 U/L (38-126) 12/02/24 15:20
Total Protein 7.8 g/dl (6.3-8.2) 12/02/24 15:20
Albumin 5.0 g/dl (3.5-5.0) 12/02/24 15:20
Physical Exam
-
Incision clean, dry
DONTAE with serosanguinous output, minimal overnight
Abdomen soft, nontender
[2024-12-07] MEDS: FOLVITE 50.2 MG IV (08:10)
[2024-12-07] MEDS: TRANDATE 52 MG IV (13:25)
[2024-12-07] MEDS: LOVENOX 40 MG SC (17:20)
[2024-12-07] MEDS: CHLORASEPTIC/SORE THROAT SPRAY 1 SPRAY PO (23:09)
[2024-12-08] MEDS: TRANDATE 52 MG IV ×2 (00:27→08:22)
[2024-12-08] MEDS: ZOSYN 50 IV ×4 (05:22→23:44)
[2024-12-08] MEDS: D5/0.9% with KCL 40 MEQ 1000 IV (06:20)
[2024-12-08 07:50] VITALS: BP 186/97
--- NOTE | 2024-12-08 08:13 | W.PN.GS2 ---
Today's Communication / Plan
-
Dispo planning
Assessment / Plan
-
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 Now with return of bowel function.
History of longstanding EtOH abuse
Limited upper GI study completed 12/05/24: No evidence of extravasation. Area of stenosis likely reflective of postoperative edema at ulcer repair site. Delayed emptying gastric/duodenal likely more reflective of ileus than mechanical process.
Plan:
Will advance to fulls
can begin dispo planning
Will need to start on a po antihypertensive, Tramadol for pain control, will transition to p.o. antibiotics for an additional 3 days, p.o. Protonix
Time Spent
Total Time Spent with Patient (in minutes): 20
Subjective Data
-
Date of Service: December 08, 2024
Interval Events:
No acute events overnight. Slept well. Pain Controlled. Denies Nausea/Vomiting, +bowel function. Tolerating diet.
Objective Data
-
Intake and Output
12/07/24 12/08/24 12/09/24
06:59 06:59 06:59
Intake Total 1450 / 1450 4337 / 4337
Output Total 110 / 110 235 / 235
Balance 1340 / 1340 4102 / 4102
Intake:
Oral fluids 240 / 240 1320 / 1320
IV fluids (Total) 960 / 960 2665 / 2665
IV piggybacks 250 / 250 352 / 352
Output:
Drain Output (Total)
Left Lower Arnel-Lozano
Gastrointestinal tube output ( 100 / 100
Total)
[place] Sump 100 / 100
Urine, Voided 200 / 200
Other:
Number of approximated MODERATE 1 1
amounts of urine
Number of approximated LARGE 1
amounts of urine
Number of unmeasured liquid
stools
Rectum 5 1
Vital Signs
Temp Pulse Resp BP Pulse Ox
97.5 F 65 16 186/97 98
12/08/24 07:50 12/08/24 07:50 12/08/24 07:50 12/08/24 07:50 12/08/24 07:50
Lab Results
12/05/24 07:54
12/05/24 07:54
Calcium 8.6 mg/dl (8.4-10.2) 12/05/24 07:54
Phosphorus 3.4 mg/dl (2.5-4.5) 12/04/24 04:51
Magnesium 2.2 mg/dl (1.6-2.3) 12/04/24 04:51
Total Bilirubin 1.3 mg/dl (0.2-1.3) 12/02/24 15:20
AST 23 U/L (17-59) 12/02/24 15:20
ALT 27 U/L (0-50) 12/02/24 15:20
Alkaline Phosphatase 85 U/L (38-126) 12/02/24 15:20
Total Protein 7.8 g/dl (6.3-8.2) 12/02/24 15:20
Albumin 5.0 g/dl (3.5-5.0) 12/02/24 15:20
Physical Exam
-
GENERAL/NEURO: Awake, Alert, no distress
CHEST: Unlabored breathing on RA
ABDOMEN: Soft, Non-Tender, Non-Distended, incisions clean dry intact, nguyen in place. DONTAE removed at bedside
Patient has a thorpe catheter: No
Patient has a central line: No
[2024-12-08] MEDS: THIAMINE INJECTION 200 MG IV (08:24)
[2024-12-08] MEDS: PROTONIX 40 MG PO (08:25)
[2024-12-08] MEDS: NSS (PRESERVATIVE FREE) IV ×2 (08:26→22:21)
[2024-12-08] MEDS: PROTONIX IV IV (08:28)
[2024-12-08] MEDS: CHLORASEPTIC/SORE THROAT SPRAY 1 SPRAY PO ×2 (08:29→16:43)
[2024-12-08 10:25] VITALS: BP 174/93
--- NOTE | 2024-12-08 11:35 | CM ---
Patient seen at bedside with son
full liq diet, per nursing drain removed
PLAN: home when medically stable, no anticipated needs
--- NOTE | 2024-12-08 13:52 | CON.HOSP ---
Consultation
-
Date/Time Consultation Requested: 902
Date/Time Consultation Performed: 12/08/24
Requesting Provider: Paul Ash MD
Performing Provider: Geraldo Langford DO
Reason for Consultation: Hypertension, post-op
Family Physician
-
Family Physician: Norberto Mccarthy
Chief Complaint
-
Elevated BP
History of Present Illness
59-year-old male with GERD, alcohol abuse (8-10 beers daily), former tobacco user that presented to the hospital 10/01/2025 with a complaint of abdominal pain that awoke him from sleep. Was associated with nausea and loss of appetite but no
vomiting. States that he was taking NSAIDs for roughly 2 days for a sprained knee prior to symptoms presenting. CT scan in the ED showed signs of perforated viscus and generalized peritonitis found to be secondary to perforated jejunal ulcer near
the ligament of Treitz. Was taken to the OR on the evening of 12/02/2024 and serosal patch applied intraoperatively. Was n.p.o. with NGT decompression following the procedure, clinically improved and NGT was withdrawn and he was started on diet
which was advanced slowly. Was treated with IV Zosyn for broad-spectrum intra-abdominal celina coverage. Started on twice daily PPI here for PUD. DONTAE drain removed on 12/07. Throughout his time here he has had persistently elevated blood pressures
that are consistently higher than 140/90 mmHg and have been up to as high as SBP in the 180s. Renal function has remained stable throughout hospital stay. No hyperkalemia noted.
Upon speaking with the patient, his son (current medical student), and his at the bedside patient states that he has never been told he has high blood pressure in the past. His son states that he occasionally takes his dad blood pressure at
home and it is almost always right near 120/80 mmHg. Patient does admit to having significant anxiety here in the hospital, states that anytime somebody comes to check his vital signs he gets anxious. Also with pain, that is improving, though
still intermittently present. He states that he does have a blood pressure cuff at home still, though the cuff is old. States he does have a PCP that he plans to see shortly after discharge from the hospital. Otherwise has not been 'a fan of
doctors'.
Medical History
Past Medical History
Past Medical History: Reports GERD and Other
Additional Past Medical History:
Alcohol, 8-10 beers daily
Past Surgical History: Reports Other (Serosal patch for perforated jejunal ulcer)
Social History
Tobacco: Former Smoker
Alcohol: Daily
Drug: None
Personal:
Living: With Family
Family History
Family History: Reviewed & Not Pertinent
Allergies / Home Medications
Allergies reflects when Allergies were last updated in [facility].
Home Medications with original date entered in [facility]
Allergy/Medication List:
Allergies
Allergy/AdvReac Type Severity Reaction Status Date / Time
No Known Allergies Allergy Verified 12/02/24 15:11
Home Medications
bismuth subsalicylate 262 mg/15 mL oral suspension (Pepto-Bismol) 524 mg PO Q1HPRN PRN GI upset 12/02/24
calcium carbonate (Tums) 200 mg PO QIDPRN PRN Stomach upset 12/02/24
ibuprofen 200 mg tablet 400 mg PO Q6HPRN PRN mild pain 12/02/24
Review of Systems
-
History Source: Patient
A 12 point Review of Systems was completed except as noted: Yes
Constitutional: Reports No Symptoms
EENT: Reports No Symptoms
Respiratory: Reports No Symptoms
Cardiac: Reports No Symptoms
Abdomen/GI: Reports Abdominal Pain
: Reports No Symptoms
Musculoskeletal: Reports No Symptoms
Skin: Reports No Symptoms
Neurological: Reports No Symptoms
Endocrine: Reports No Symptoms
Hematologic/Lymphatic: Reports No Symptoms
Psych: Reports No Symptoms
Physical Exam
Vital Signs
Vital Signs
Temp Pulse Resp BP Pulse Ox
97.5 F 65 16 174/93 98
12/08/24 07:50 12/08/24 07:50 12/08/24 07:50 12/08/24 10:25 12/08/24 11:05
Physical Exam
General: Well Developed, Well Nourished and No Apparent Distress
HEENT: Normocephalic, Anicteric, Moist Mucous Membranes, Atraumatic and PERRLA
Respiratory: Clear and Non Labored Respirations; Negative Accessory Resp Muscle Use
Cardiac: S1/S2 and Regular Rhythm; Negative Murmur, Rub, Peripheral Edema or JVD
GI: Soft, Non Tender, Non Distended and Normal Bowel Sounds
Musculoskeletal: No Clubbing and No Cyanosis
Skin: Warm and Dry; Negative Rash or Jaundice
Neuro: AO x 3 and Nonfocal/Grossly Intact
Psych: Calm
Laboratory Results
-
Laboratory Results
12/05/24 07:54
12/05/24 07:54
Lactic Acid 1.0 mmol/L (0.7-2.0) 12/03/24 05:47
Total Bilirubin 1.3 mg/dl (0.2-1.3) 12/02/24 15:20
AST 23 U/L (17-59) 12/02/24 15:20
ALT 27 U/L (0-50) 12/02/24 15:20
Alkaline Phosphatase 85 U/L (38-126) 12/02/24 15:20
Lipase 303 U/L (23-300) H 12/02/24 15:20
Impression / Plan
-
59-year-old male with no significant past medical history that presented to the hospital after being awoken from sleep on 12/02/2024 with severe abdominal pain. Upon arrival was found to have perforated abdominal viscus and peritonitis secondary to
ruptured jejunal ulcer near ligament of Treitz. Was taken to the OR where serosal patch was placed on 12/02/2024. Diet slowly advanced as patient tolerated, treated with analgesics, temporarily required NGT decompression which was removed
successfully. Blood pressure is remained persistently elevated throughout the hospitalization, ranging between systolic blood pressure 140 and 190 mmHg. Patient without history of chronic hypertension, does not take any antihypertensive
medications. Medicine consulted for blood pressure management.
#Elevated blood pressure without diagnosis of HTN
-Suspect that this is predominantly driven by anxiety and postop discomfort
-Patient states that every time he has vitals checked he gets very nervous
-Has checked home BP previously with recordings near 120/80 mmHg
-No signs of ongoing alcohol withdrawal at this time, likely not a major contributor
-Do not feel that current BP needs aggressive management, expect improvement from being out of the hospital
Recs
-Order new blood pressure cuff, record values twice daily (after 15 min rest) and take booklet to OV with PCP
-Would encourage no added salt diet after discharge from the hospital
-Will need close follow-up with his PCP, 1 to 2 weeks after discharge
-Avoid NSAIDs which can also increase blood pressure
#Perforated jejunal ulcer s/p serosal patch
-Likely secondary to NSAID use, was taking prior to event occurring
-Was taken to the OR on 12/02/2024 for serosal patch placement
-Now currently on oral PPI twice daily after IV course
-Benign abdomen, tolerating full diet
Recs
-PO PPI BID for 8 weeks, OP GI follow-up
-Avoid NSAIDs strictly
#Chronic alcohol abuse
-Patient drinks between 6 and 10 beers nightly per his history
-States that he is done drinking alcohol, encouraged this action
-No obvious stigmata of hepatic cirrhosis on exam
I have discussed this case with the general surgery team. No contraindication to discharge today from medicine's perspective. Suspected blood pressure will improve after discharge, elimination of in-hospital stressors that are likely driving the
blood pressure high. Will need close follow-up with his primary care physician and home BP monitoring. Advised patient that if blood pressure at home >200 and associated with symptoms such as headache, blurry vision, chest pain, dyspnea that he
should return to the emergency department.
[2024-12-08 15:34] VITALS: BP 131/75
[2024-12-08 17:13] VITALS: BP 156/91
[2024-12-08] MEDS: LOVENOX 40 MG SC (17:41)
[2024-12-08 23:40] VITALS: BP 136/87
[2024-12-09] MEDS: ZOSYN 50 IV (05:54)
--- NOTE | 2024-12-09 07:45 | W.PN.GS2 ---
Today's Communication / Plan
-
`
Assessment / Plan
-
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 Now with return of bowel function.
History of longstanding EtOH abuse
Limited upper GI study completed 12/05/24: No evidence of extravasation. Area of stenosis likely reflective of postoperative edema at ulcer repair site. Delayed emptying gastric/duodenal likely more reflective of ileus than mechanical process.
Plan: LR diet for breakfast
d/c home today after breakfast
d/c instructions reviewed
Subjective Data
-
Date of Service: December 09, 2024
pt seen and examined
minimal post op incisional pain
no nausea yumiko fulls and advancing to LR diet for breakfast
Objective Data
-
Intake and Output
12/08/24 12/09/24 12/10/24
06:59 06:59 06:59
Intake Total 4337 / 4337 1959
Output Total 235 / 235
Balance 4102 / 4102 1959
Intake:
Oral fluids 1320 / 1320 1860 / 1860
IV fluids (Total) 2665 / 2665
IV piggybacks 352 / 352 100 / 100
Output:
Drain Output (Total) 35 / 35
Left Lower Arnel-Lozano 35 / 35
Urine, Voided 200 / 200
Other:
Number of approximated SMALL 3
amounts of urine
Number of approximated MODERATE 1 1
amounts of urine
Number of unmeasured liquid
stools
Rectum 1 4
Vital Signs
Temp Pulse Resp BP Pulse Ox
98.3 F 79 18 136/87 97
12/08/24 23:40 12/08/24 23:40 12/08/24 23:40 12/08/24 23:40 12/09/24 01:43
Lab Results
12/05/24 07:54
12/05/24 07:54
Calcium 8.6 mg/dl (8.4-10.2) 12/05/24 07:54
Phosphorus 3.4 mg/dl (2.5-4.5) 12/04/24 04:51
Magnesium 2.2 mg/dl (1.6-2.3) 12/04/24 04:51
Total Bilirubin 1.3 mg/dl (0.2-1.3) 12/02/24 15:20
AST 23 U/L (17-59) 12/02/24 15:20
ALT 27 U/L (0-50) 12/02/24 15:20
Alkaline Phosphatase 85 U/L (38-126) 12/02/24 15:20
Total Protein 7.8 g/dl (6.3-8.2) 12/02/24 15:20
Albumin 5.0 g/dl (3.5-5.0) 12/02/24 15:20
Physical Exam
-
NAD AAO x 3
ABD: soft, ND, NTTP
incision with clips, no significant drainage, no erythema
--- NOTE | 2024-12-09 07:49 | W.DS.TRANS ---
DC Summary - Superintendent Service
-
Discharge Instructions:
Discharge Diagnosis/Procedures Perforated jejunum. Exploratory laparotomy,
repair of jejunal perforation
Diet No added salt,Low Residue
Additional Diets smaller portions with meals; supplements 1-2x
daily
Activity No strenuous activity
Additional Activity No lifting over 15 to 20 pounds for 6 weeks
postoperatively
Driving Restrictions No driving if using narcotics
Bathing Restrictions OK to Shower
Wound Care Dry gauze dressing over incision site change 1-2
times daily until dry. Then may leave open to
air if no drainage between nguyen or keep
covered with dry gauze as desired.
Instructions: Low-fiber diet
Stand-Alone Forms:
Changes to Home Medications: Yes
Discharge Medications:
DC Medications w/original date entered in [facility]
bismuth subsalicylate 262 mg/15 mL oral suspension (Pepto-Bismol) 524 mg PO Q1HPRN PRN GI upset 12/02/24
calcium carbonate (Tums) 200 mg PO QIDPRN PRN Stomach upset 12/02/24
acetaminophen 325 mg tablet 650 mg (2 x 325 mg) PO Q6HPRN PRN mild pain #14 tabs 12/08/24
miscellaneous medical supply (Blood Pressure Cuff) #1 ea 12/08/24
pantoprazole 40 mg tablet,delayed release 40 mg PO DAILY #30 tabs 12/08/24
Home Medication Changes
NEW MEDICATION - Pantoprazole 40mg PO daily for 1 month post op
NO NSAID MEDICATIONS - ibuprofen, aleve, advil, etc.
Pending Results: No
[2024-12-09 08:35] VITALS: BP 126/85
[2024-12-09] MEDS: PROTONIX 40 MG PO (10:16)
[2024-12-09] MEDS: NSS (PRESERVATIVE FREE) IV (10:17)
[2024-12-09] MEDS: AFLURIA (36 mos+) 2024-2025 FORMULA 0.5 ML IM (10:43)
--- NOTE | 2024-12-09 11:39 | W.PN.HOSP.TC ---
Today's Communication/Plan
-
No contraindication to discharge
Follow-up with PCP
Record home blood pressure
Assessment / Plan
Assessment / Plan
#Elevated blood pressure without diagnosis of HTN
-Suspect that this is predominantly driven by anxiety and postop discomfort
-Patient states that every time he has vitals checked he gets very nervous
-Has checked home BP previously with recordings near 120/80 mmHg
-No signs of ongoing alcohol withdrawal at this time, likely not a major contributor
-Do not feel that current BP needs aggressive management, expect improvement from being out of the hospital
Recs
-Order new blood pressure cuff, record values twice daily (after 15 min rest) and take booklet to OV with PCP
-Would encourage no added salt diet after discharge from the hospital
-Will need close follow-up with his PCP, 1 to 2 weeks after discharge
-Avoid NSAIDs which can also increase blood pressure
#Perforated jejunal ulcer s/p serosal patch
-Likely secondary to NSAID use, was taking prior to event occurring
-Was taken to the OR on 12/02/2024 for serosal patch placement
-Now currently on oral PPI twice daily after IV course
-Benign abdomen, tolerating full diet
Recs
-PO PPI BID for 8 weeks, OP GI follow-up
-Avoid NSAIDs strictly
#Chronic alcohol abuse
-Patient drinks between 6 and 10 beers nightly per his history
-States that he is done drinking alcohol, encouraged this action
-No obvious stigmata of hepatic cirrhosis on exam
No contraindication to discharge from medicine perspective
Anticipated Discharge: Today
Subjective/Interval History
-
Date of Service: December 09, 2024
Seen and examined at bedside. No acute events overnight. AFVSS this morning
Blood pressure much improved, close to normotension as of this morning
Plan for discharge after breakfast
Objective Data
-
Vital Signs:
Vital Signs
Temp Pulse Resp BP Pulse Ox
98.0 F 90 18 126/85 95
12/09/24 08:35 12/09/24 08:35 12/09/24 08:35 12/09/24 08:35 12/09/24 08:35
I&O
12/08/24 12/09/24 12/10/24
06:59 06:59 06:59
Intake Total 4337 / 4337 1959
Output Total 235 / 235
Balance 4102 / 4102 1959
Review of Systems
-
History Source: Patient
All other systems: Reviewed and negative
Physical Exam
-
General: Well Developed, No Apparent Distress and Comfortable
HEENT: Normocephalic, Atraumatic and Moist Mucous Membranes
Respiratory: Clear to Auscultation and Non Labored Respirations
Cardiac: Regular Rhythm; Negative Murmur, Rub or Gallop
GI: Soft, Nontender, Nondistended and Normal Bowel Sounds
Musculoskeletal: No Clubbing, No Cyanosis and No Edema
Skin: Warm, Dry and Normal Turgor; Negative Rash or Jaundice
Neuro: AO x 3 and Nonfocal/Grossly Intact
Psych: Calm
[2024-12-09 11:40] VITALS: BP 113/79
== END 2024-12-09 12:30 | disposition home or self-care (01) | DRG 853 ==
LOC: 2 SOUTH 22:27
PROVIDERS: Emergency Medicine; Nurse Practitioner Gerontology; Physician Assistant; ADMITTING PHYSICIAN Surgery; CONSULT PHYSICIAN Internal Medicine; EMERGENCY PHYSICIAN Student in an Organized Health Care Education/Training Program; FAMILY PHYSICIAN Family Medicine
PROC: 0DQA0ZZ Repair Jejunum, Open Approach (ICD-10-PCS; 2024-12-02)
DX: A41.9 Sepsis, unspecified organism (principal); K28.1 Acute gastrojejunal ulcer with perforation; K63.1 Perforation of intestine (nontraumatic); K65.0 Generalized (acute) peritonitis; E87.20 Acidosis, unspecified; K91.89 Other postprocedural complications and disorders of digestive system; Z87.891 Personal history of nicotine dependence; F10.10 Alcohol abuse, uncomplicated
CPT/HCPCS: 74177; 74240; 80048; 80053; 82010; 82805; 83605; 83690; 83735; 84100; 85025; 85027; 86803; 87070; 87075; 87077; 87205; 90686; 96365; 96375; 99285; G0008; Q9967

== ENCOUNTER → 2025-02-27 08:32 | Outpatient (REF) | payer BC, SELFPAY | LOC: RAD 08:32 | PROVIDERS: ATTENDING PHYSICIAN Surgery; FAMILY PHYSICIAN Family Medicine | DX: K28.1 Acute gastrojejunal ulcer with perforation (principal); Z09 Encounter for follow-up examination after completed treatment for conditions other than malignant neoplasm | CPT/HCPCS: 74246 ==